=== PATIENT | female | born 1960 | race Caucasian/White ===

== ENCOUNTER 2016-05-26 18:54 | Inpatient (IN) | payer MEDICARE, MEDICAID ==
[2016-05-26 21:10] VITALS: BP 138/71
[2016-05-26] MEDS ORDERED: Maalox 30 mL Cup PO PRN (21:10)
[2016-05-26] MEDS ORDERED: Magnesium Hydroxide (MOM) 30 mL UDC PO PRN (21:10)
[2016-05-26] MEDS ORDERED: Albuterol/Ipratropium Neb 3 ML AERS HHN PRN (23:28)
[2016-05-27] MEDS ORDERED: Albuterol/Ipratropium Neb 3 ML AERS HHN SCH (03:00)
[2016-05-27] MEDS: Levothyroxine 0.125 Mg Tab PO SCH (06:32)
[2016-05-27] MEDS: Multivitamin Tab PO SCH (08:52)
--- NOTE | 2016-05-27 13:55 | History & Physical ---
She came from [facility]. HISTORY OF PRESENT ILLNESS: The patient is a 55-year-old obese female. She has history of seizures and caused her to go to the hospital. Seizure started while she was at [facility]. She started twitching. She had a full seizure and rolled her eyes back and hit the back of her head as well. Her body was shaking also. There was no loss of bowel or bladder function. She was recently discharged from [facility] with Keppra 1000 mg b.i.d. After that, she was admitted to [facility] for syncope. She has history of schizophrenia, hypertension, and bipolar disorder. She denied having a blackout, but she was suicidal at that time. She then presented to [facility] for inpatient psychiatric care. She was actively suicidal. PAST MEDICAL HISTORY: Significant for schizoaffective disorder, seizure disorder, suicidal ideation, hypertension, generalized weakness. PAST SURGICAL HISTORY: Denies any surgeries with the exception of D and C. MEDICATIONS: All medications reviewed and reconciled. FAMILY HISTORY: Noncontributory. ALLERGIES: HYDROCHLOROTHIAZIDE, LIDOCAINE, MECLIZINE, REGLAN, PENICILLIN, SULFA, TETRACYCLINE, TRIAMTERENE, EXACT REACTION IS UNKNOWN. SOCIAL HISTORY: Denies any alcohol, tobacco or drug abuse. REVIEW OF SYSTEMS: GENERAL: Positive recent fatigue. No fevers or chills. HEENT: No recent head trauma, change in vision, taste, hearing, or smell. Oral: Denies any pain or discharge. NECK: No recent tracheal deviation. CARDIOVASCULAR: Denies any chest pain or palpitations. She has history of sinus bradycardia. RESPIRATORY: She has history of asthma. GASTROINTESTINAL: Denies any nausea, vomiting or diarrhea. Last night, she did vomit and she could not hold on her meds, but prior to this, no history of nausea, vomiting or diarrhea. NEUROLOGIC: She has history of restless leg syndrome and insomnia as well. PSYCHIATRIC: She has history of schizoaffective disorder with history of suicidal ideation. MUSCULOSKELETAL: She has a history of muscle spasms. GENITOURINARY: Denies any increased frequency, urgency, pyuria or dysuria. PHYSICAL EXAMINATION: VITAL SIGNS: Temperature is 97.8 degrees, heart rate is 92, respirations 18, blood pressure 141/73. No pain. GENERAL: No acute distress, awake. She is actually alert, resting in bed. HEENT: Normocephalic, atraumatic. Pupils are round and reactive to light. Extraocular muscles intact. NECK: Trachea is midline. No JVD. CARDIOVASCULAR: Regular rate and rhythm. ABDOMEN: Nontender, nondistended. SKIN: No rashes. EXTREMITIES: 1+ edema lower extremities bilaterally. RESPIRATORY: Decreased breath sounds. MUSCULOSKELETAL: Decreased muscle strength in lower extremities. NEUROLOGIC: No evidence of acute stroke or seizure activity. PSYCHIATRIC: She has labile mood. LABORATORY DATA: I have ordered a CBC, CMP, chest x-ray, UA and a KUB as well. ASSESSMENT: 1. Seizure disorder. 2. Asthma. 3. Hypertension. 4. Hypothyroidism. 5. Restless leg syndrome. 6. Muscle spasm. 7. Bipolar disorder. 8. Obese. 9. Gastrointestinal upset. 10. Schizoaffective disorder. PLAN: I have ordered a chest x-ray and KUB along with CBC, CMP and the mag level. I have also ordered a UA. Continue Tylenol p.r.n. pain. I have discontinued the Motrin. Continue breathing treatments, albuterol/ipratropium. She is on Lexapro for depression Neurology is seeing the patient and continue gabapentin for neuropathic pain. She is on Keppra 1000 mg b.i.d. for seizure disorder. Follow up on the labs. Psychiatrist is seeing the patient. JOB# [id number]
[2016-05-27] MEDS: Escitalopram Oxalate 10 MG, Escitalopram Oxalate 5 MG PO SCH (14:48)
--- NOTE | 2016-05-27 14:52 | Diagnostic Imaging Report ---
CHEST X-RAY: AP view INDICATION: Vomiting COMPARISON: None FINDINGS: No focal consolidation or pleural effusions. Left basal subsegmental atelectasis versus scarring is noted. Heart size is normal. Atherosclerosis of the aortic arch is noted. Degenerative changes of the spine are noted. IMPRESSION: No focal consolidation identified. Left basal subsegmental atelectasis versus scarring. Atherosclerotic vascular disease.
--- NOTE | 2016-05-27 14:53 | Diagnostic Imaging Report ---
KUB History: Vomiting Comparison: None Findings: Gas-filled loops of bowel are seen in an overall nonspecific pattern. Degenerative changes of the spine are noted with scoliosis. IMPRESSION: Nonspecific bowel gas pattern.
--- NOTE | 2016-05-28 04:44 | Psychosocial Evaluation ---
JUSTIFICATION FOR HOSPITALIZATION: The patient was sent to the hospital, as she was making some suicidal statements, suicidal ideations. CHIEF COMPLAINT: "I told my therapist that I was suicidal." HISTORY OF PRESENT ILLNESS: A 55-year-old female apparently told therapist she was suicidal, sent from [facility] due to expressions of SI, concerns for safety. The patient has a suicide history, attests to depression, fair sleep, fair appetite, notes lack of hope at times. PAST PSYCHIATRIC HISTORY: She has had psych admissions in the past. Notes multiple suicide attempts. FAMILY HISTORY: Noncontributory. SOCIAL HISTORY: She was born in [facility], not , no kids, living in [facility], no drugs, no alcohol, no tobacco. MEDICAL HISTORY: Please see full H and P. MENTAL STATUS EXAMINATION: Appearance stated age, fair eye contact, withdrawn. Speech within normal limits. Mood "okay." Affect depressed. Thought processes were linear. Thought content: The patient guarded, but was attesting to SI, no HI. No evidence of psychosis. Insight and judgment diminished x2. Fair concentration. PROVISIONAL DIAGNOSES: Major depression, recurrent, severe. No psychosis. Also, anxiety, unspecified. MEDICAL: Please see full History and Physical. ESTIMATED LENGTH OF STAY: 5-10 days. ASSESSMENT: The patient requiring inpatient hospitalization, suicidal, history of suicide attempts, severely depressed. PLAN: We will monitor closely, titrate medications. Treatment plan includes group as well as milieu therapy. CONDITIONS FOR DISCHARGE: Improved mood, improved affect, cessation of any SI or HI. [facility]# [id number]
[2016-05-28] MEDS: Levothyroxine 0.125 Mg Tab PO SCH (07:04)
[2016-05-28] MEDS: Multivitamin Tab PO SCH (08:57)
[2016-05-28] MEDS: Escitalopram Oxalate 10 MG, Escitalopram Oxalate 5 MG PO SCH (08:58)
[2016-05-28 09:19] LABS: ALB/GLOB RATIO 1.7 (1.0-1.8); ALKALINE PHOSPHATASE 106 U/L (34-104); ANION GAP 12.4 (7.0-16.0); BILIRUBIN,TOTAL 0.5 mg/dL (0.3-1.0); BUN - UREA NITROGEN 13 mg/dL (7-25); BUN/CREATININE RATIO 18.6; CALCIUM SERUM 9.8 mg/dL (8.6-10.3); CARBON DIOXIDE 28.2 mEq/L (21.0-31.0); CHLORIDE 104 mEq/L (98-107); CREATININE - SERUM 0.7 mg/dL (0.6-1.2); GLUCOSE 94 mg/dL (70-105); POTASSIUM SERUM 3.6 mEq/L (3.5-5.1); SGOT 16 U/L (13-39); SGPT/ALT 14 U/L (7-52); SODIUM SERUM 141 mEq/L (136-145)
--- NOTE | 2016-05-29 03:45 | Progress Notes ---
SUBJECTIVE: Chart was reviewed and the patient interviewed. Also discussed the patient's condition with the staff and reviewed records and labs. The patient is still anxious and in irritable mood. The patient also still seems to be suspicious. The patient also is according to staff faking seizures and faking spasms in her legs that is not seen. The patient also is depressed. Otherwise, no side effects of medications and the patient continued to take Lexapro that was increased to ____ mg every day with no side effects. ASSESSMENT: The patient is still depressed and slightly psychotic. TREATMENT PLAN: Continue monitoring her behavior and her medications closely and we will continue to follow up. JOB# [id number]
[2016-05-29] MEDS: Levothyroxine 0.125 Mg Tab PO SCH (06:33)
[2016-05-29] MEDS: Multivitamin Tab PO SCH (09:10)
--- NOTE | 2016-05-29 23:35 | Progress Notes ---
SUBJECTIVE: Chart reviewed and the patient interviewed. Also discussed the patient's condition with the staff and reviewed records and labs. The patient is still tearful and she is still in a depressed mood, especially that the facility where she lives told her that she cannot return there. The patient said, "I like it there." The patient said that she has been in different places and that she likes [facility] where she is living at this time. The patient is still feeling hopeless and helpless. She also is still having low energy and lack of motivation especially with the news she heard yesterday. She also is still interacting minimally with peers and with others. Otherwise, the patient is compliant with taking her medications with no side effects of medications. During interview, the patient is on her wheelchair. She is in a depressed mood with poor eye contact and low tone and rate of speech. ASSESSMENT: The patient is still depressed and high risk of suicide. TREATMENT PLAN: We will continue monitoring her behavior and her condition closely. Also, we will continue adjusting psychotropic medications and working on her ineffective coping. Also, we will increase Lexapro to 20 mg everyday and we will continue to follow up. JOB# [id number]
[2016-05-30] MEDS: Levothyroxine 0.125 Mg Tab PO SCH (06:43)
[2016-05-30] MEDS: Multivitamin Tab PO SCH (08:40)
--- NOTE | 2016-05-30 23:59 | Progress Notes ---
SUBJECTIVE: The patient was seen, chart reviewed, and discussed with staff. The patient is currently in the hospital, upset, suicidal, stating that she told the therapist that she was suicidal, sent from [facility]. On [id number], the patient knows she is very depressed, still not tommy for safety, still noted to be withdrawn, isolative, hopeless, despairing, spending most of her time by herself, low energy, minimal interaction with others. Sleeping fairly well and eating fairly well. ASSESSMENT: The patient remains symptomatic, depressed, and continued safety concerns do persist. PLAN: Continue to monitor. Continue Lexapro, given recent dose escalation. Given the severity of the patient's behaviors, there are continued concerns for the patient's safety. [facility]# [id number]
[2016-05-31] MEDS: Levothyroxine 0.125 Mg Tab PO SCH (06:46)
[2016-05-31] MEDS: Multivitamin Tab PO SCH (08:17)
--- NOTE | 2016-06-01 00:44 | Progress Notes ---
SUBJECTIVE: The patient is seen, chart reviewed, discussed with staff. The patient notes her mood is "better" and her suicidal ideation is decreasing. She is pretty anxious, withdrawn. She currently is in the hospital because she became upset, was suicidal, told her therapist she was suicidal, still appearing somewhat melancholic ____; however, she seems to be more interactive, more sociable, she is stating that she had difficulty sleeping last night, would like a medication adjustment for sleep, eating fairly well, she is taking her medications. ASSESSMENT: The patient is still depressed, withdrawn, but suicidal ideation seemed to be dissipating. PLAN: Continue Lexapro. I did make medication adjustments in regard to her sleeping medication. [facility]# [id number]
[2016-06-01] MEDS: Levothyroxine 0.125 Mg Tab PO SCH (06:29)
[2016-06-01] MEDS: Multivitamin Tab PO SCH (08:39)
--- NOTE | 2016-06-02 06:35 | Progress Notes ---
SUBJECTIVE: Chart reviewed and the patient interviewed. Also discussed the patient's condition with the staff and reviewed records and labs. The patient is severely depressed because "cannot go back today." The patient is still asking to return to the previous [facility] where she was living, but at the same time, no confirmation that the patient can return there. She is still in a depressed mood and she is still feeling hopeless and helpless. She also is still having severe mood swings and ____ anxiety. The patient also is pacing up and down the unit. On the other hand, the patient is compliant with taking her medications with no side effects. ASSESSMENT: The patient is still depressed. TREATMENT PLAN: Continue monitoring her behavior and her condition closely. Also, continue adjusting psychotropic medications and follow up closely. [facility]# [id number]
[2016-06-02] MEDS: Levothyroxine 0.125 Mg Tab PO SCH (06:45)
[2016-06-02] MEDS: Multivitamin Tab PO SCH (08:40)
--- NOTE | 2016-06-02 19:53 | Discharge Summary ---
IDENTIFICATION: The patient is a 55-year-old female. PHYSICIAN: Dr. Zhang. PRIMARY DIAGNOSIS: Major depression, severe, recurrent, without psychotic features. REASON FOR HOSPITALIZATION: The patient was admitted to the hospital because of increased depression and suicidal ideations and patient wanted to kill herself. HOSPITAL COURSE: The patient continued to be severely depressed and anxious. The patient also was feeling hopeless and helpless. The patient was started on Lexapro and the dose adjusted to 20 mg every day. Gradually, the patient's affect was brighter. The patient was less depressed. She also interacted more with peers and with others. She denies any thoughts of suicide or homicide and she was discharged from the hospital back to [facility]. Physical examination of the patient was basically within normal. The patient had no major medical problems while in the hospital. Blood workup ____ basically within normal except alkaline phosphatase was 106. AFTER DISCHARGE PLANS: The patient discharged from the hospital back to her custodial with plans for outpatient treatment and follow up there. EXPECTED OUTCOME AFTER DISCHARGE: Fair if the patient continues outpatient treatment and follow up with treatment plans. JOB# [id number]
== END 2016-06-02 14:00 | DRG 885 ==
LOC: GERO 18:54
PROVIDERS: ADMIT Psychiatry & Neurology Psychiatry; ATTEND Psychiatry & Neurology Psychiatry
DX: F33.2 Major depressive disorder, recurrent severe without psychotic features (principal); Z68.41 Body mass index [BMI] 40.0-44.9, adult; I10 Essential (primary) hypertension; E66.9 Obesity, unspecified; G40.909 Epilepsy, unspecified, not intractable, without status epilepticus; F25.9 Schizoaffective disorder, unspecified; J45.909 Unspecified asthma, uncomplicated; E03.9 Hypothyroidism, unspecified; G25.81 Restless legs syndrome; M62.838 Other muscle spasm; F41.9 Anxiety disorder, unspecified; Z88.0 Allergy status to penicillin; Z88.2 Allergy status to sulfonamides; Z88.8 Allergy status to other drugs, medicaments and biological substances
CPT/HCPCS: 36415-UA; 71010-TC; 74000-TC; 80053-TC; 83036-90; 83735-TC; 90899; 94760; G0410; Q0162; Z7610